=== PATIENT | female | born 1975 | race Caucasian/White ===

== ENCOUNTER 2017-02-04 07:00 | Emergency (ER) | payer OTHER ==
[~2017-02-04] VITALS: Ht 162.6 cm; Wt 141.8 kg
[2017-02-04] MEDS ORDERED: NAPROXEN500 MG PO (07:40)
[2017-02-04] MEDS ORDERED: LIDODERM 5% P1 PATCH TD (07:40)
[2017-02-04] MEDS ORDERED: PEPCID20 MG PO (10:14)
[2017-02-04] MEDS ORDERED: PREDNISONE20 MG PO (10:14)
[2017-02-04 10:35] VITALS: BP 145/86
== END 2017-02-04 10:37 | disposition home or self-care (01) ==
LOC: EME 07:00
DX: T78.40XA Allergy, unspecified, initial encounter (principal); X58.XXXA Exposure to other specified factors, initial encounter; F17.200 Nicotine dependence, unspecified, uncomplicated
CPT/HCPCS: 94640; 99281; 99283; J2930; S0028

== ENCOUNTER 2017-05-11 06:49 | Emergency (ER) | payer OTHER ==
[~2017-05-11] VITALS: Ht 162.6 cm; Wt 134.3 kg
[~2017-05-11 06:49] MED LIST: LIDODERM 5% P1 PATCH TD; NAPROXEN500 MG PO; PEPCID20 MG PO; PREDNISONE20 MG PO
[2017-05-11 07:50] VITALS: BP 145/72
[2017-05-11] MEDS ORDERED: METHADONE HCL40 MG PO (07:50)
== END 2017-05-11 07:50 | disposition home or self-care (01) ==
LOC: EME 06:49
DX: K12.0 Recurrent oral aphthae (principal); Z91.040 Latex allergy status
CPT/HCPCS: 99281; 99283

== ENCOUNTER → 2017-06-30 | Outpatient (CLI) | payer OTHER ==
[~2017-06-30] VITALS: Ht 162.6 cm; Wt 129.7 kg
[~2017-06-30] MED LIST changes: +METHADONE HCL40 MG PO; +METHADONE1 MG/1 ML PO
== END | disposition home or self-care (01) ==
LOC: AMB 09:11
DX: Z12.11 Encounter for screening for malignant neoplasm of colon (principal); Z80.0 Family history of malignant neoplasm of digestive organs; K63.5 Polyp of colon; F11.21 Opioid dependence, in remission; K21.9 Gastro-esophageal reflux disease without esophagitis; E66.01 Morbid (severe) obesity due to excess calories; Z68.42 Body mass index [BMI] 45.0-49.9, adult; F17.200 Nicotine dependence, unspecified, uncomplicated
CPT/HCPCS: 88305; J2250

== ENCOUNTER 2017-08-14 14:07 | Inpatient (IN) | payer OTHER ==
[~2017-08-14] VITALS: Ht 162.6 cm; Wt 136.0 kg
[~2017-08-14 14:07] MED LIST changes: -METHADONE HCL40 MG PO
[2017-08-14 16:53] LABS: HEMOGLOBIN 14.7 G/DL (11.9-15.5); MCH 29.3 PG (29.0-34.0); MCHC 32.7 G/DL (30.0-36.0); MCV 89.6 FL (83-99); PLATELET COUNT 198 K/uL (156-360); RBC DIS.WIDTH-CV 15.2 % (11.8-14.6); RBC DIS.WIDTH-SD 50.4 % (39-53); RED BLOOD COUNT 5.02 M/uL (3.80-5.20); WHITE BLOOD COUNT 7.8 K/uL (4.1-10.2)
[2017-08-14 17:05] LABS: CHLORIDE 98 mEq/L (99-109); SODIUM 137 mEq/L (136-147)
[2017-08-14 17:06] LABS: GLUCOSE 96 mg/dL (70-99)
[2017-08-14 17:10] LABS: CREATININE 0.7 mg/dL (0.6-1.3); GFR ESTIMATE (CALCULATED) > 59 mL/min/
[2017-08-14 17:11] LABS: UREA NITROGEN (BUN) 9 mg/dL (9-23)
[2017-08-14] MEDS ORDERED: SUDAFED PE PRE1 EAC3 PO (17:52)
[2017-08-14 22:57] VITALS: BP 132/70
[2017-08-15 03:59] VITALS: BP 116/64
[2017-08-15 06:56] LABS: BASOPHIL (%) 0.2 % (0-1); EOSINOPHIL (%) 0 % (0-5); HEMATOCRIT 43.2 % (36.0-46.0); HEMOGLOBIN 13.6 G/DL (11.9-15.5); IMMATURE GRANULOCYTE (%) 0.5 % (0.0-0.7); LYMPHOCYTE (%) 19.3 % (15-42); LYMPHOCYTE COUNT 1.1 K/uL (1.0-2.8); MCH 28.2 PG (29.0-34.0); MCHC 31.5 G/DL (30.0-36.0); MCV 89.6 FL (83-99); MONOCYTE (%) 7.1 % (3-12); MONOCYTE COUNT 0.4 K/uL (0-0.8); NEUTROPHIL (%) 72.9 % (45-76); PLATELET COUNT 211 K/uL (156-360); RBC DIS.WIDTH-SD 49.4 % (39-53); RED BLOOD COUNT 4.82 M/uL (3.80-5.20); WHITE BLOOD COUNT 5.5 K/uL (4.1-10.2)
[2017-08-15 07:20] LABS: CHLORIDE 101 MEQ/L (99-109); CREATININE 0.5 MG/DL (0.6-1.3); GFR ESTIMATE (CALCULATED) > 59 mL/min/; GLUCOSE 179 mg/dL (70-99); POTASSIUM 4.7 MEQ/L (3.7-5.4); SODIUM 138 MEQ/L (136-147); UREA NITROGEN (BUN) 8 mg/dL (9-23)
[2017-08-15 08:23] VITALS: BP 134/73
[2017-08-15 11:44] VITALS: BP 132/78
[2017-08-15 16:34] VITALS: BP 129/60
[2017-08-15 20:48] VITALS: BP 116/57
[2017-08-16 00:16] VITALS: BP 122/61
[2017-08-16 08:02] VITALS: BP 127/80
[2017-08-16 11:27] VITALS: BP 124/88
[2017-08-16 15:48] VITALS: BP 135/88
[2017-08-16 20:15] VITALS: BP 125/66
[2017-08-17 00:44] VITALS: BP 137/71
[2017-08-17 04:52] VITALS: BP 124/71
[2017-08-17 07:12] VITALS: BP 135/75
[2017-08-17] MEDS ORDERED: OSELTAMIVIR PHO75 MG PO (07:36)
[2017-08-17] MEDS ORDERED: PREDNISONE10 MG PO (07:36)
[2017-08-17] MEDS ORDERED: ADVAIR HFA120 INHALA IH (07:36)
[2017-08-17] MEDS ORDERED: VENTOLIN HFA18 GM IH ×2 (07:36→11:40)
[2017-08-17] MEDS ORDERED: LEVAQUIN750 MG PO (07:37)
[2017-08-17] MEDS ORDERED: AZITHROMYCIN500 M1 PO (07:52)
[2017-08-17] MEDS ORDERED: DUONEB 2.5-0.5 M3 ML AEROSOL (10:17)
[2017-08-17 11:06] VITALS: BP 137/86
== END 2017-08-17 12:03 | disposition home or self-care (01) | DRG 193 ==
LOC: EME 14:07 → 5SOUTH 19:44 → EDOF 19:44 → ENRESERV 19:49 → 5SOUTH 22:00 → ENPENDDIS 08-17 11:41 → 5SOUTH 08-17 12:03
PROVIDERS: Internal Medicine; Physician Assistant Medical
DX: J10.08 Influenza due to other identified influenza virus with other specified pneumonia (principal); J18.0 Bronchopneumonia, unspecified organism; J96.01 Acute respiratory failure with hypoxia; J44.0 Chronic obstructive pulmonary disease with (acute) lower respiratory infection; F11.20 Opioid dependence, uncomplicated; E66.01 Morbid (severe) obesity due to excess calories; Z68.43 Body mass index [BMI] 50.0-59.9, adult; G47.33 Obstructive sleep apnea (adult) (pediatric); F17.210 Nicotine dependence, cigarettes, uncomplicated
CPT/HCPCS: 71046; 80048; 83605; 85025; 85027; 87040; 87070; 87205; 90686; 94640; 94640 76; 94799; 99202; 99281; 99285; J0456; J0696; J1644; J2930; J7030; J7512